=== PATIENT | female | born 1975 | race Caucasian/White ===

== ENCOUNTER → 2021-02-12 | Outpatient (CLI) | payer OTHER, MEDICAID ==
[2021-02-12 14:13] LABS: ANION GAP 9 mmol/L (7-16); BUN 16 mg/dL (7-18); CALCIUM 9.2 mg/dL (8.5-10.1); CHLORIDE 103 mmol/L (98-107); CHOLESTEROL 237 mg/dL (<200); CO2 27 mmol/L (21-32); CREATININE 0.9 mg/dL (0.6-1.3); GLUCOSE 109 mg/dL (70-99); HDL CHOLESTEROL 56 mg/dL (>40); LDL CHOLESTEROL 139 mg/dL (<100); POTASSIUM 3.7 mmol/L (3.5-5.1); SERUM ASSESSMENT Clear; SODIUM 139 mmol/L (136-145); TC:HDL 4.2 Ratio (Not establshd); TRIGLYCERIDE 212 mg/dL (<150); VLDL 42 mg/dL (<40)
== END ==
LOC: M.LAB 13:18
PROVIDERS: ATTEND Family Medicine
DX: Z13.220 Encounter for screening for lipoid disorders (principal); I10 Essential (primary) hypertension; Z68.41 Body mass index [BMI] 40.0-44.9, adult